=== PATIENT | female | born 1990 | race Caucasian/White ===

== ENCOUNTER 2023-01-29 00:04 | Emergency (ER) | payer BC, MEDICAID ==
[~2023-01-29] VITALS: Ht 160 cm; Wt 78.0 kg
[2023-01-29 00:15] VITALS: BP_SYST 120; PULSE 83; RESP 0; RESP 20; TEMP 98.2; O2SAT 96
--- NOTE | 2023-01-29 00:26 | NUR ---
Patient to ER bed 05 to gown for evaluation. Side rails up. Report given to MAGDALENE VEGA.
[2023-01-29] MEDS ORDERED: LIDOCAINE 1% 10 MG/ML, 20 ML MDV INJ ONE (00:30)
--- NOTE | 2023-01-29 00:36 | NUR ---
PT BIB DAUGHTER FROM HOME C/O LACERATION TO RT PINKY FINGER 1 INCH LONG. BLEEDING HAS STOPPED PT STATES PAIN IS 8/10 RIGHT NOW. PT STATES WAS WASHING DISHES WHEN A BROKEN CUP CUT HER FINGER. PT IS 28 WEEKS AND AAO X4 RESTING IN BED WITH MOTHER BEDSIDE VSS
--- NOTE | 2023-01-29 00:54 | NUR ---
MD TRIVEDI ADMINISTER LIDOCAINE
--- NOTE | 2023-01-29 00:54 | NUR ---
ER at bedside examining patient.
[2023-01-29] MEDS ORDERED: DIPHTH,PERTUSS(ACELL),TET VAC 0.5 ML VIAL (Tdap) I.M. ONE (01:00)
[2023-01-29] MEDS ORDERED: BACITRACIN 1 GM OINT TP ONE (01:36)
[2023-01-29 01:45] VITALS: BP_SYST 120; PULSE 83; RESP 20; TEMP 98.2; O2SAT 96
--- NOTE | 2023-01-29 01:45 | NUR ---
Patient given written and verbal discharge instructions and verbalizes understanding. ER DR. ARTIS discussed with patient the results and treatment provided. Patient in stable condition. ID arm band removed. Patient educated on pain management and to follow up with PMD. Pain Scale 0. Opportunity for questions provided and answered. Medication side effect fact sheet provided.
== END 2023-01-29 01:45 | disposition home or self-care (01) ==
LOC: SED 00:04
DX: S61.216A Laceration without foreign body of right little finger without damage to nail, initial encounter (principal); Z79.899 Other long term (current) drug therapy; W25.XXXA Contact with sharp glass, initial encounter; Y93.89 Activity, other specified; Y92.89 Other specified places as the place of occurrence of the external cause; Y99.8 Other external cause status
CPT/HCPCS: 99283; 90715; 90471; 12004; J2001